=== PATIENT | female | born 2000 | race Two or more races ===

== ENCOUNTER 2020-09-23 13:00 | Inpatient (IN) | payer OTHER ==
[~2020-09-23] VITALS: Ht 154.9 cm; Wt 72.6 kg
[~2020-09-23 13:00] MED LIST: PRENATABS FA T1 EACH
== END 2020-10-09 13:11 | disposition home or self-care (01) | DRG 807 ==
LOC: LDR 10-07 09:17 → OB/GYN 10-07 09:17
PROVIDERS: ADMIT Specialist; ATTEND Specialist
PROC: 10E0XZZ Delivery of Products of Conception, External Approach (ICD-10-PCS; principal; 2020-10-07)
PROC: 0W8NXZZ Division of Female Perineum, External Approach (ICD-10-PCS; 2020-10-07)
PROC: 10907ZC Drainage of Amniotic Fluid, Therapeutic from Products of Conception, Via Natural or Artificial Opening (ICD-10-PCS; 2020-10-07)
PROC: 3E033VJ Introduction of Other Hormone into Peripheral Vein, Percutaneous Approach (ICD-10-PCS; 2020-10-07)
PROC: 4A1HXFZ Monitoring of Products of Conception, Cardiac Rhythm, External Approach (ICD-10-PCS; 2020-10-07)
DX: O80 Encounter for full-term uncomplicated delivery (principal); Z37.0 Single live birth; Z3A.39 39 weeks gestation of pregnancy; Z20.822 Contact with and (suspected) exposure to COVID-19